=== PATIENT | male | born 1950 | race Caucasian/White ===

== ENCOUNTER 2020-03-06 15:04 | Day surgery (SDC) | payer OTHER, MEDICARE, SELFPAY ==
[2020-03-06 15:16] VITALS: BP 123/61; PULSE 71; RESP 20; TEMP 36.1; O2SAT 96; BMI 23.3
[2020-03-06 15:50] VITALS: BP 123/61; PULSE 63; RESP 18; O2SAT 98
[2020-03-06 15:57] VITALS: BP 124/62; PULSE 61; RESP 18; TEMP 36.8; O2SAT 98
--- NOTE | 2020-03-06 16:05 | P.PCN_ITS ---
- Procedure Date: 03/06/20 Time: 16:05 Anesthesiologist:: Rose Haely APRN Complications:: None Pre-procedure Diagnosis:: Degenerative disc disease lumbar spine lumbar radiculopathy Post-procedure Diagnosis:: Same Indications for Procedure:: Patient is a pleasant 69-year-old white male who presents today for intrathecal pain pump refill and reprogram. He is currently on intrathecal morphine infusion of 2.5 mg/day. He would like to increase this slightly. He is also on gabapentin 400 mg 1 p.o. 6 times a day. He denies any side effects to this medication. [facility] #[id number] reviewed and appropriate. Patient is also on Wellbutrin and doing well with this. Patient is coming to [facility] on his Medtronic pain pump. We will begin the process to have him switched out. Physical Exam General: Alert and oriented x3, no acute distress, pleasant and cooperative, [on room air] Lungs: Resps E/U, Symmetrical chest expansion, Eyes: PERRL Musculoskeletal: Flexion and extension of bar spine somewhat guarded secondary to pain, deep tendon reflexes normal, strength in upper and lower extremities [5/5], [abnormal gait noted] Neurological: speech clear, forest fire officer equal, no gross sensory deficits Procedure Details:: Informed consent was obtained and the risk and benefits of the procedure were explained to the patient. The patient was taken to the procedure room where noninvasive monitoring was placed including noninvasive blood pressure cuff and pulse oximeter. Patient's pump was interrogated. The area over the pump was cleansed with chlorhexidine as a cleansing solution. In sterile fashion the pump was accessed with a 22-gauge needle. Approximately 4.5 mL's were removed of the pump solution and discarded appropriately. The pump was then refilled with 20 mL's of intrathecal morphine 20 mg/mL. The needle was withdrawn and a bandage was placed over the puncture site. The infusion rate was reprogrammed to was increased to 2.7 mg/day. The patient tolerated the procedure well. Plan and Disposition:: We will get the patient started on the process to have his pain pump changed. Patient's been instructed to call the office if he has any issues prior to his next appointment. We will continue his Wellbutrin and gabapentin. Dr. Alcantara has reviewed this note and agrees with this plan of care. This note was dictated using voice recognition software and may contain errors or omissions
[2020-03-06 16:12] VITALS: BP 140/87; PULSE 65; RESP 18; O2SAT 96
== END 2020-03-06 16:12 | disposition home or self-care (01) ==
PROVIDERS: Visit Provider Clinical Nurse Specialist Family Health
DX: M51.16 Intervertebral disc disorders with radiculopathy, lumbar region (principal); I10 Essential (primary) hypertension; F32.9 Major depressive disorder, single episode, unspecified; Z79.899 Other long term (current) drug therapy; Z79.51 Long term (current) use of inhaled steroids
CPT/HCPCS: 62370

== ENCOUNTER → 2020-04-17 10:06 | Outpatient (POV) | payer OTHER, MEDICARE, SELFPAY ==
[2020-04-17 10:17] VITALS: BP 132/77; PULSE 85; RESP 18; TEMP 36.8; O2SAT 98; BMI 25.0
--- NOTE | 2020-04-17 11:03 | HMH.PMPROC ---
- Procedure Date: 04/17/20 Time: 11:03 Anesthesiologist:: Rose Haley APRN Complications:: None Pre-procedure Diagnosis:: Degenerative disc disease lumbar spine lumbar radiculopathy Post-procedure Diagnosis:: Same Indications for Procedure:: Patient is a very pleasant 69-year-old white male who presents today for intrathecal pain pump adjustment. Patient has a Medtronic pump going on for months of battery life. Patient is having increased pain. Patient states that he has been extremely comfortable on his previous dose of medication however now his pain has increased he rates it a 5 out of 10. Patient would like a slight increase today. Denies side effects to his medication. Physical Exam General: Alert and oriented x3, no acute distress, pleasant and cooperative, [on room air] Lungs: Resps E/U, Symmetrical chest expansion, Eyes: PERRL Musculoskeletal: Flexion and extension of lumbar spine somewhat guarded secondary to pain, deep tendon reflexes normal, strength in upper and lower extremities [5/5], [abnormal gait noted] Neurological: speech clear, postal supervisor equal, no gross sensory deficits Procedure Details:: Informed consent was obtained and the risk and benefits of the procedure were explained to the patient. The patient was taken to the procedure room where noninvasive monitoring was placed including noninvasive blood pressure cuff and pulse oximeter. Patient's pump was interrogated and reprogrammed. The infusion rate was increased to 3 mg/day of morphine. The patient tolerated the procedure well. Plan and Disposition:: We will schedule the patient for a intrathecal pain pump replacement. I will follow-up with him after this reassess his symptoms at that time he has been instructed to call the office if he has any issues prior to his next appointment. Dr. Alcantara has reviewed this note and agrees with this plan of care. This note was dictated using voice recognition software and may contain errors or omissions
== END ==
PROVIDERS: Visit Provider Clinical Nurse Specialist Family Health
DX: M51.16 Intervertebral disc disorders with radiculopathy, lumbar region (principal)
CPT/HCPCS: 62368; 99212

== ENCOUNTER → 2020-05-16 11:01 | Outpatient (CLI) | payer OTHER, MEDICARE, SELFPAY ==
[2020-05-16 11:40] LABS: Basophils % 0.6 % (0.1-2.0); Eosinophils # 0.2 K/mm3 (0.0-0.4); Eosinophils % 2.5 % (0.1-12.0); Hematocrit 43.6 % (42.0-52.0); Hemoglobin 14.1 g/dL (14.1-18.0); Lymphocytes # 1.6 K/mm3 (0.7-4.5); Lymphocytes % 25.5 % (10-50); Mean Corpuscular HGB Conc 32.3 g/dL (31.8-35.4); Mean Corpuscular Hemoglobin 28.9 pg (27.0-31.2); Mean Corpuscular Volume 89.4 fl (80-94); Mean Platelet Volume 7.6 fl (7.4-10.4); Monocytes # 0.4 K/mm3 (0.1-1.0); Monocytes % 5.7 % (1.7-9.3); Neutrophils # 4.2 K/mm3 (1.8-7.8); Neutrophils % 65.7 % (37.0-80.0); Platelet Count 347 K/mm3 (142-424); Red Blood Count 4.87 M/mm3 (4.60-6.20); Red Cell Distribution Width 13.4 % (11.5-17.5); White Blood Count 6.4 K/mm3 (4.8-10.8)
[2020-05-16 12:33] LABS: Chloride 98 mmol/L (98-107)
[2020-05-16 12:34] LABS: Potassium 4.4 mmoL/L (3.5-5.1); Sodium 138 mmol/L (136-145)
[2020-05-16 12:37] LABS: Anion Gap 14.4 mEq/L (5-15); Blood Urea Nitrogen 20 mg/dl (9-20); Carbon Dioxide 30 mmol/L (22.0-30.0); Estimated Glomerular Filt Rate 84 ml/min (>60); GFR (African American) 101 ML/MIN (>60); Glucose 112 mg/dl (74-100)
[2020-05-16 14:13] LABS: Coronavirus 19 IgG Antibody Negative (Negative); Coronavirus 19 IgM Antibody Negative (Negative)
[2020-05-16 15:44] LABS: Benzodiazepines Screen,Urine Negative ng/ml (<200)
[2020-05-16 15:45] LABS: Amphetamine/Metha Screen,Urine Negative ng/ml (<1000); Barbiturates Screen,Urine Negative ng/ml (<200)
[2020-05-16 15:51] LABS: Cannabinoid Screen,Urine Negative ng/ml (<50)
[2020-05-16 15:52] LABS: Cocaine Screen,Urine Negative ng/ml (<300); Methadone Screen,Urine Negative ng/ml (<300)
[2020-05-16 15:53] LABS: Opiate Screen,Urine Positive ng/ml (<300); Phencyclidine Screen,Urine Negative ng/ml (<25)
== END ==
PROVIDERS: Visit Provider Anesthesiology
DX: Z01.818 Encounter for other preprocedural examination (principal); M51.36 Other intervertebral disc degeneration, lumbar region
CPT/HCPCS: 36415; 80048; 80305; 85025; 86328

== ENCOUNTER 2020-05-17 07:00 | Day surgery (SDC) | payer OTHER, MEDICARE, SELFPAY ==
[2020-05-15 13:44] VITALS: BMI 25.0
[2020-05-17] VITALS (11 sets, daily range): BP systolic 72–153; BP diastolic 54–90; PULSE 57–89; RESP 16–18; TEMP 36.2–36.6; O2SAT 93–98
--- NOTE | 2020-05-17 08:07 | P.CONS_ITS ---
Assessment and Plan - Assessment and plan all Dx Assessment and Plan for all problems:: Cjtsvqaohx-paw-gy-life, pain pump generator Plan-removal and replacement of pain pump generator today HPI - Data of Consult Patient: new to practice Requesting Physician: Clark Alcantara MD Primary Care Provider: No PCP - Consult Narrative Reason for consult: End of life, pain pump generator History of present illness: Mr. Nix is a 69 year old male who had placement of a pain stimulator system 5- 1/2 years ago for management of degenerative disc disease. Pump is ending year of life status and he comes in for changing of his pain pump generator CC: Clark Alcantara MD [facility] History Medical History: Reports:: Hyperlipidemia, Hypertension Denies:: Cancer, Diabetes Mellitus Type 1, Diabetes Mellitus Type 2, Internal Pacemaker, MRSA, Seizures *Have you ever received a pneumonia vaccine?: No *Have you received a flu vaccine this season?: Yes Other Medical History: Reports: Arthritis Comment:: Illnesses-hypertension, hyperlipidemia, depression, chronic back pain Other Surgeries: Yes: Other (pain pump implant). No: Pacemaker Amputation: No Fractures: Yes Comment: Operations-pain pump implant 5-1/2 years ago, right foot surgery, partial amputation right thumb - *Social History Last grade of school completed: High school graduate Smoking Status: Never smoker Alcohol Intake: never *Occupational Status:: retired Housing: house Household Members: spouse *Travel in the last 8 weeks: None Family Hx:: Unable to obtain Review of Systems - Review of Systems Review of systems:: pertinent systems reviewed and negative unless documented below Meds Home Medications Medication Instructions Recorded Confirmed Type Gabapentin [Gabapentin 400mg Cap] 400 mg PO BID 11/01/19 05/15/20 History Simvastatin 20 mg PO DAILY 11/01/19 05/15/20 History lisinopriL [Lisinopril 10mg Tab] 10 mg PO DAILY 11/01/19 05/15/20 History Morphine Sulfate 2.5 mg IT CONT 03/06/20 05/15/20 History buPROPion HCL [Wellbutrin SR 150mg 150 mg PO BID 05/15/20 05/15/20 History Tablet] Allergies Allergy/AdvReac Type Severity Reaction Status Date / Time No Known Allergies Allergy Verified 05/15/20 13:49 Objective no acute distress Comments: Healthy-appearing white male in no distress - *Routine Respiratory Exam Comments: Chest clear - *Routine Cardiovascular Exam Present: RRR - *Routine Abdominal Exam Present: soft
--- NOTE | 2020-05-17 09:16 | HMH.ANESCL ---
[facility] Anesthesia Checklist - Structural Data Admitted From: Home Planned Operative Procedure/s: pain pump insertion Consent for Planned Operative Procedure(s) Verified: Yes - Additional verifications Anesthesia Reactions: No Hx Blood Transfusions: No Blood Transfusion Reaction: No - Airway Assessment C-Spine Mobility Assessed: Yes TMJ Mobility Assessed: Yes Dentition: Edentulous - Neurological Assessment Level of Consciousness: Awake, Alert, Appropriate - Anesthesia Plan Anesthesia Risk discussed: Yes Anesthesia Plan: Verified ASA Class: II Anesthesia Type: MAC [facility] History I have reviewed the patient's past medical history: Yes Medical History: Reports:: Hyperlipidemia, Hypertension Denies:: Cancer, Diabetes Mellitus Type 1, Diabetes Mellitus Type 2, Internal Pacemaker, MRSA, Seizures *Have you ever received a pneumonia vaccine?: No *Have you received a flu vaccine this season?: Yes Other Medical History: Reports: Arthritis. Denies: Blood Transfusion Reaction Anesthesia experience/problems:: none Other Surgeries: Yes: Other (pain pump implant). No: Pacemaker Amputation: No Fractures: Yes - *Social History Last grade of school completed: High school graduate Smoking Status: Never smoker Alcohol Intake: never Substance Use Type: denies use *Occupational Status:: retired Housing: house Household Members: spouse *Travel in the last 8 weeks: None Family Hx:: Unable to obtain
[2020-05-17 11:12] LABS: POC Glucose,Bedside 126 (70-110)
--- NOTE | 2020-05-17 12:36 | P.OP_ITS ---
Date of procedure: 05/17/20 Pre-op Diagnosis:: Degenerative disc disease of lumbar spine with lumbar radiculopathy symptoms with end-of-life intrathecal pain pump system Post-op Diagnosis:: Same Procedure performed:: Replacement intrathecal catheter with tunneling for replacement of intrathecal pain pump system Surgeon:: Clark Alcantara MD ACTUARIAL TECHNICIAN:: Mehul Arteaga Anesthesia: GETA Estimated blood loss (mL): 5 Clinical Note:: Patient is a pleasant 69-year-old white male who has an intrathecal Medtronic in place with intrathecal morphine 20 mg/mL running at 3.0 mg/day. He was doing well with his pump up until recently when he had to have several increases in his infusion as his pump was nearly end-of-life. We are replacing his intrathecal catheter and pain pump today as it is nearing end-of-life. His catheter is almost 14 years old so we will also change out his catheter as well. Operative findings:: None Operative note:: Informed consent was obtained and the risk and benefits of the procedure were explained to the patient. The patient was taken to the operating room placed in a right lateral decubitus position. Patient was prepped and draped in sterile fashion. C-arm fluoroscopy was used to view the lumbar spine. The existing Medtronic pain pump was explanted by Dr. Woods. The catheter was tied off in the pocket. I made an incision adjacent to the L4-5 and L5-S1 interspace. I dissected down to the lumbar paraspinous fascia. A 14-gauge spinal needle was inserted and advanced into the L4-5 interspace until clear CSF was obtained. After this intrathecal catheter was inserted and advanced very easily to the T12 vertebral body. The stylette of the catheter and the needle were withdrawn. The catheter is secured to the fascia with 2 anchoring devices and 2-0 Prolene. I tunneled the catheter from the back to the pump pocket that was previously created by Dr. Flores. I attached the catheter to the pump. The pump was secured to the fascia with 2-0 Prolene. We were able to freely withdraw clear CSF through the side-port. Both incisions were then closed with 2-0 Vicryl followed by 4-0 nylon. A wound VAC was placed over both incisions. The patient was placed in an abdominal binder and taken recovery in stable condition. Patient tolerated the procedure well with no complications. Patient was programmed by the [facility] service center representative. Pump was decreased 20% to 2.4 mg/day of intrathecal morphine. The pump was then refilled with 20 mL of intrathecal morphine 20 mg per ml. prior to implantation. Patient was discharged home neurologically intact with good relief of pain symptoms. Plan and disposition: We will follow-up with this patient in 1 week for wound check. We will follow-up in 2 weeks for suture removal. If the patient has any problems or questions he is to call us back in the pain clinic. Condition: stable Disposition: PACU Complications:: None
--- NOTE | 2020-05-17 12:46 | HMH.OPNOTE ---
Date of procedure: 05/17/20 Pre-op Diagnosis:: End of life, pain pump generator Post-op Diagnosis:: Same Procedure performed:: Removal and replacement of pain pump generator Surgeon:: Tadeo Woods MD TIMING MACHINE OPERATOR:: Rolf Grant, Teddy Love, Taj Albrecht, Mehul Arteaga, Other Anesthesia: MAC Estimated blood loss (mL): 5 Operative findings:: Not applicable Operative note:: Once adequate IV sedation was obtained the patient was placed on his right side and his left abdomen and back were prepped and draped in sterile fashion. Once adequate local anesthesia was obtained was 1% Xylocaine with epinephrine a incision was made over the left abdominal located generator and carried down through skin and subcutaneous tissues. Generator and surrounding Dacron pouch were removed. The catheter was ligated with a 0 silk tie. At this point appears spinal incision was made by Dr. Polk under fluoroscopic guidance placed an intrathecal catheter into the intrathecal space to the area desired by Dr. Bliss. The catheter was fixed to the paraspinal fascia with fixation devices and 2-0 Prolene suture. Utilizing the tunneling device the catheter was passed from the paraspinal incision to the left lower quadrant incision. Generator and catheter connected. Generator placed in the pocket and fixed to the underlying fascia with 2-0 Prolene suture. CSF was aspirated from the generator noting patency of the system. Both pockets irrigated with antibiotic solution. Subcutaneous tissues closed with 2-0 Vicryl. Skin closed arm stitches of 4-0 nylon. Wound VAC dressings and a binder applied to the wound. The patient taught procedure well was taken recovery in stable condition. Upon recovery patient will be discharged home will follow-up 1 week for removal of wound VAC dressings in 2 weeks for removal of the stitches. Antibiotics x1 week per protocol. The patient tolerated the procedure well Condition: stable Disposition: PACU Complications:: None
== END 2020-05-17 15:52 | disposition home or self-care (01) ==
LOC: OR 07:03
PROVIDERS: Visit Provider Anesthesiology
PROC: (CPT 62350; principal; 2020-05-17 09:00)
DX: Z45.1 Encounter for adjustment and management of infusion pump (principal); M51.16 Intervertebral disc disorders with radiculopathy, lumbar region; I10 Essential (primary) hypertension; E78.5 Hyperlipidemia, unspecified; M19.90 Unspecified osteoarthritis, unspecified site; F32.9 Major depressive disorder, single episode, unspecified; Z79.899 Other long term (current) drug therapy
CPT/HCPCS: 62350; 62362; 82962; 96374; C1755; C1772; J3370

== ENCOUNTER 2020-05-18 18:26 | Observation (INO) | payer OTHER, SELFPAY ==
[2020-05-18] VITALS (13 sets, daily range): BP systolic 139–182; BP diastolic 67–123; PULSE 110–124; RESP 18–26; TEMP 36.6–37.8; O2SAT 93–98; BMI 27.3
[2020-05-18 18:46] LABS: Basophils % 0.1 % (0.1-2.0); Eosinophils % 0.1 % (0.1-12.0); Hematocrit 42.9 % (42.0-52.0); Hemoglobin 13.9 g/dL (14.1-18.0); Lymphocytes % 8.1 % (10-50); Mean Corpuscular HGB Conc 32.3 g/dL (31.8-35.4); Mean Corpuscular Hemoglobin 28.1 pg (27.0-31.2); Mean Platelet Volume 7.5 fl (7.4-10.4); Monocytes # 0.4 K/mm3 (0.1-1.0); Monocytes % 3.6 % (1.7-9.3); Neutrophils # 10.6 K/mm3 (1.8-7.8); Platelet Count 411 K/mm3 (142-424); Red Blood Count 4.94 M/mm3 (4.60-6.20); Red Cell Distribution Width 13.3 % (11.5-17.5)
[2020-05-18 18:48] LABS: Chloride 104 mmol/L (98-107); Potassium 3.6 mmoL/L (3.5-5.1); Sodium 142 mmol/L (136-145)
[2020-05-18 18:49] LABS: MANUAL DIFFERENTIAL MANUAL DIFFERENTIAL (MANUAL DIFF)
[2020-05-18 18:50] LABS: Alanine Aminotransferase 27 U/L (12-78); Aspartate Amino Transferase 28 U/L (17-59); Bilirubin,Total 0.6 mg/dl (0.2-1.3); Blood Urea Nitrogen 19 mg/dl (9-20); Creatinine Clearance Estimated 81 mL/min (50-200); Estimated Glomerular Filt Rate 74 ml/min (>60); GFR (African American) 90 ML/MIN (>60)
[2020-05-18 18:51] LABS: Albumin/Globulin Ratio 1.5 (1.1-1.8); Alkaline Phosphatase 62 U/L (38-126); Anion Gap 19.6 mEq/L (5-15); Calcium 10.3 mg/dl (8.4-10.2); Carbon Dioxide 22 mmol/L (22.0-30.0); Globulin 3.3 g/dL (1.3-3.2); Glucose 220 mg/dl (74-100); Lipase 68 U/L (23-300); Total Protein,Serum 8.3 g/dl (6.3-8.2)
[2020-05-18 18:57] LABS: Lymphocytes % 4 % (10-50); Monocytes % 5 % (2-9); Neutrophils % 91 % (42-76); Platelet Estimate Normal; RBC Morphology Normal; Total Cells Counted 100
[2020-05-18 18:58] LABS: Hypersegmented Neutrophils 1+
--- NOTE | 2020-05-18 19:01 | HMH.EDANX ---
ED Disposition Condition on Discharge: Serious - Critical Care Critical Care Time: No <Wilmer Pappas - Last Filed: 05/18/20 20:33> - Critical Care Critical Care Time: Yes Total Critical Care Time: 40 Vital system(s) involved:: Central Nervous System My critical care processes included: Assessment & monitoring of V/S, Initial and Re-exams, Data Review/Interpretation, Coordinating Care, Medication Orders and management, Documentation <Wilmer Woods - Last Filed: 05/18/20 23:52> Clinical Impression: Acute anxiety, Agitation requiring sedation protocol Disposition: Admitted as Observation Referrals: Provider,Referral, MD [Primary Care Provider] - Attestation: On 05/18/20, the high probability of a clinically significant, sudden or life threatening deterioration of the following system(s) required my full and direct attention, intervention and personal management. The time I documented below is in addition to time spent performing reported procedures but includes the following listed in this critical care notation. Medical Decision Making - Medical Records Medical records reviewed: Yes: I reviewed the patient's medical records. - Walter Inquiry Pt receiving controlled substance: Yes Walter was queried for this patient: No Reason not queried -: Emergent pt cond-no time Risks and benefits of using a controlled substance: were discussed with pt by me - Lab Data Result diagrams: 05/18/20 18:40 05/18/20 18:40 - Restraint Evaluation Behavior Requiring Restraints: Violent Behavior Type of restraints in use: Foam/Soft Limb Alternatives Attempted to Avoid Restraints: Limit Setting/Control Indications for removing restraints: No longer combative Patient's current condition/response: Tolerating Well Medical Behavior/Plan: Continue current protocol <Wilmer Pappas - Last Filed: 05/18/20 20:33> - Lab Data Lab results reviewed: Yes: I reviewed the patient's lab results. Result diagrams: 05/18/20 18:40 05/18/20 18:40 - Radiology Data #1 Image(s): Chest Image Reviewed: Yes I reviewed the patient's radiology image - CT Data CT Scan: Head Time Received: 23:36 ([facility] fax) ED CT Reviewed: Yes: I have viewed the radiologist's interpretation - Physician Consults Physician Consulted: Bux Time: 21:05 Reason -: Pt condition, Other (Pain management) Comment/Response: He states that the patient's pain pump was changed from a Medtronics to a [employer] pump. His old pump delivered a continuous infusion of medication, his new pump delivers small boluses. He has seen people get restless legs and leg pain after this sort of change. He says he also knows that the patient has an intolerance to Dilaudid. He recommends continue doses of morphine, he prefers Valium to Ativan, and recommends a dose of Requip. He recommends admission and he will see the patient in the morning to adjust his pain pump. Additional Consult: Maricruz Time: 23:30 Reason -: Pt condition, Other (Pain management) Comment/Response: Discussed findings since last call. Rectal temperature is mildly elevated. He does not feel this is international representative of infection related to his procedure. He says it is too early in the course. The patient denies headache and has no nuchal rigidity. He does not suspect meningitis. Discussed analysis of spinal fluid. He does not feel this is necessary at this time, but if necessary he will have LP performed by radiology under fluoroscopy due to his intrathecal pain pump. This is preferable to getting fluid from his intrathecal catheter. The patient is on Bactrim postoperatively, he does not feel other antibiotics are needed. Additional Consult: Marlon Time: 23:45 Reason -: Admission Comment/Response: Agrees to admit the patient to the hospital. We discussed the patient's clinical information, including history, exam, laboratory and radiology results and ED course. Per hospital procedure, I will write temporary bridge inpatie
--- NOTE | 2020-05-18 19:45 | CT_ITS ---
PROCEDURE: CT HEAD/BRAIN WO CON CLINICAL INDICATION: ams Altered mental status, altered level of consciousness, confusion, disorientation COMPARISON: No exams were available for comparison TECHNIQUE: Axial images obtained. All CT scans at the facility use one or more dose reduction, viz: automated exposure control, ma/kV adjustment per patient size (including targeted exams where dose is matched to indication, i.e. head), or iterative reconstruction technique. FINDINGS: No midline shift, mass effect, intracranial hemorrhage, hydrocephalus, or extra-axial fluid collection is evident. There is a mild degree of cortical atrophy. The ventricles are somewhat prominent slightly out of proportion to the degree of atrophy. The calvarium has an unremarkable appearance. Partial empty sella is present as a normal variant. No mastoid effusion. No sinus air-fluid level. IMPRESSION: 1. No acute intracranial findings. 2. Mild prominence of the lateral ventricles possibly related to ex vacuo dilatation. Early normal pressure hydrocephalus is also consideration. Please correlate with clinical parameters. Follow-up may confirm stability. Correlation with old films may also be helpful. There are none available at this institution. Dictated by: Dav Espinoza MD 05/19/2020 05:36 Dav Espinoza MD in [facility] 05/19/2020 05:36
--- NOTE | 2020-05-18 20:10 | PC.NURSE ---
pricehas some AMS and may require restraints, michoacano called and was advised. michoacano advised that she will find someone to come sit one on one
[2020-05-18 20:11] LABS: ABG Base Excess -4.2 mmol/L (-2.4-2.3); ABG HCO3 19.4 mmhg (22.0-26.0); ABG Oxygen Saturation 96 % (90-100); ABG PCO2 27.3 mmhg (35.0-45.0); ABG PH 7.47 mmol/L (7.35-7.45); ABG PO2 78.7 mmhg (80-100); ABG TCO2 20.3 mmhg (23-27); Oxygen room air %
[2020-05-18 20:12] LABS: Allen's Test Patient Unable; Source Left Radial
[2020-05-18 20:14] LABS: Ethyl Alcohol < 10 mg/dl (0-10)
--- NOTE | 2020-05-18 20:29 | PC.NURSE ---
Head CT ordered on pt, pt is not able to safely lay on a table to CT at this time, pt on 1:1 sitter for safety
--- NOTE | 2020-05-18 20:31 | XR_ITS ---
PROCEDURE: XR CHEST PORTABLE CLINICAL HISTORY: AMS Altered mental status COMPARISON: No exams were available for comparison FINDINGS: Normal heart size. There is increased density overlying the lower tracheal region at the T3 level with the con vacs upper margin. This may be due to overlying artifact. Cannot exclude a foreign body within the trachea. Please correlate with clinical parameters. There are low lung volumes with vascular crowding in the right infrahilar region. No acute bony abnormalities. IMPRESSION: Increased density overlying the mid to lower trachea which may be due to overlying artifact versus foreign body. Repeat upright PA and lateral or chest CT may provide further evaluation. Dictated by: Dav Espinoza MD 05/19/2020 05:07 Dav Espinoza MD in [facility] 05/19/2020 05:07
--- NOTE | 2020-05-18 21:03 | ECG_ITS ---
APPROVED REPORT Exam: Resting ECG HR:120 bpm ECG Measurements Heart Rate 120 AXES [place] 186 P 108 QRSd 92 QRS -10 QT 300 T 208 QTc 424 Conclusion Sinus tachycardia with fusion complexes Incomplete right bundle branch block Inferior infarct, age undetermined Cannot rule out Anteroseptal infarct, age undetermined T wave abnormality, consider lateral ischemia Abnormal ECG Electronically signed by : Teddy Stark, 05/19/2020 14:33:11
--- NOTE | 2020-05-18 21:04 | PC.NURSE ---
on phone with dr beyer
--- NOTE | 2020-05-18 21:12 | PC.NURSE ---
called charge nurse upstairs for requip dose
--- NOTE | 2020-05-18 21:16 | PC.NURSE ---
called [facility] and informed them of patients wishes of staying at this facility for admission. awaiting fax of paperwork to be filled out by patients .
[2020-05-18 21:21] LABS: Troponin I < 0.01 ng/ml (0.00-0.034)
--- NOTE | 2020-05-18 23:02 | PC.NURSE ---
returned from ct
[2020-05-18 23:22] LABS: Microscopic, Urine URINE MICROSCOPIC (MICROSCOPIC)
[2020-05-18 23:23] LABS: Appearance,Urine CLEAR (Clear); Bilirubin,Urine Negative (Negative); Blood, Urine 3+ (Negative); Color,Urine YELLOW (Yellow); Glucose,Urine (UA) 2+ (Negative); Ketones,Urine 1+ (Negative); Leukocyte Esterase,Urine Negative (Negative); Nitrate,Urine Negative (Negative); Protein,Urine Negative (Negative); Urobilinogen,Urine 0.2 EU/dl (0.2)
[2020-05-18 23:28] LABS: WBC,Urine Occasional #/hpf (0-3)
[2020-05-18 23:29] LABS: Bacteria,Urine Trace /lpf; RBC,Urine 20-50 #/hpf (0-3)
[2020-05-18 23:34] LABS: Benzodiazepines Screen,Urine Positive ng/ml (<200)
[2020-05-18 23:35] LABS: Amphetamine/Metha Screen,Urine Negative ng/ml (<1000); Barbiturates Screen,Urine Negative ng/ml (<200)
[2020-05-18 23:36] LABS: Cannabinoid Screen,Urine Negative ng/ml (<50); Methadone Screen,Urine Negative ng/ml (<300)
[2020-05-18 23:37] LABS: Cocaine Screen,Urine Negative ng/ml (<300)
[2020-05-18 23:38] LABS: Opiate Screen,Urine Positive ng/ml (<300); Phencyclidine Screen,Urine Negative ng/ml (<25)
[2020-05-18 23:49] LABS: Coronavirus 19 IgG Antibody Negative (Negative); Coronavirus 19 IgM Antibody Negative (Negative)
[2020-05-19] VITALS (9 sets, daily range): BP systolic 140–185; BP diastolic 60–87; PULSE 80–116; RESP 16–20; TEMP 36.6–37.9; O2SAT 93–98; BMI 20.9
--- NOTE | 2020-05-19 00:55 | PC.NURSE ---
patient up to floor via stretcher.
--- NOTE | 2020-05-19 01:59 | PC.NURSE ---
Unable to obtain information from pt due to AMS upon arrival to unit. Pt is only A&O to self. States he is in [place] and the current year is 1997. Pt noted very lethargic and sporadic with his body movements. Pt continues to thrash his limbs at times, but for most part lethargic when asked questions and unable to appropriately answer without falling asleep. Med rec unable to be completed at time of admission. This RN will attempt to call pt's in am and have her bring pt's medications from home in with her this am so med rec can be completed.
--- NOTE | 2020-05-19 03:38 | PC.NURSE ---
Pt has rested well with eyes closed with intermittent periods of awakening and thrashing of arms, but easily calms down on his own. No longer needing one on one supervision at this time. Bed alarm is on and functioning with staff close by. Bilateral breath sounds noted clear t/o upon auscultation. Tolerates RA well with no c/o SOA. Abdomen noted soft and non-tender upon palpation. Wound vac noted to left lower abdomen and lower lower back. VSS. Remains safe. Call light within reach. Will continue to monitor.
--- NOTE | 2020-05-19 05:45 | PC.NURSE ---
Attempted to call per number on file this am. No answer and no voicemail set up. Will attempt again at a later time.
--- NOTE | 2020-05-19 07:31 | P.CONPHA_ITS ---
[facility] [place] Pharmacy VTE Monitoring - Patient Demographics Admission date: 05/18/20 Report Date: 05/19/20 Time: 07:31 Allergies/Adverse Reactions: Patient Allergies No Known Allergies Allergy (Verified 05/15/20 13:49) Height: 1.73 m Weight: 62.851 kg Patient Problems: Current Active Problems Acute anxiety (Acute) Agitation requiring sedation protocol (Acute) - VTE Risk Labs: VTE Related Lab Results Hgb 13.9 g/dL (14.1-18.0) L 05/18/20 18:40 Hct 42.9 % (42.0-52.0) 05/18/20 18:40 Plt Count 411 K/mm3 (142-424) 05/18/20 18:40 BUN 19 mg/dl (9-20) 05/18/20 18:40 Creatinine 1.00 mg/dl (0.66-1.25) 05/18/20 18:40 Estimated Creat Clear 81 mL/min (50-200) 05/18/20 18:40 - Prophylaxis VTE Prophylaxis Ordered?: Yes Types of VTE Prophylaxis: TEDS Knee High Location of Applied Device: Bilateral Lower Extremeties
--- NOTE | 2020-05-19 07:56 | HMH.PHAINT ---
home medication list confirmed with [facility]
--- NOTE | 2020-05-19 08:30 | HMH.HP ---
*Admission Date: 05/18/20 <Maggi Peck 05/19/20 08:31> *Chief complaint: Anxiety and Agitation <Maggi Peck 05/19/20 08:31> *History of present illness: Mr. Nix is a 69yo male with history of HTN and HLP who presented to the [facility] ED yesterday with complaints of severe anxiousness and leg pain following surgery for intrathecal pain pump revision the day prior. He reported a history of withdrawal in a similar situation when he had his pain pump changed and experienced abnormalities in his dosage. His reported that he had not experienced any confusion, however, he had been very restless and unable to get comfortable since waking up that morning. He had no headache or GI upset. After experiencing symptoms for most of the day, he contacted Dr. Alcantara's office and was advised to come to the ED for evaluation. Upon arrival, he was very restless, pacing in his room and tremulous. His workup was unremarkable, however, despite remaining alert and oriented, his agitation was severe enough that even after restraints were applied in for safety he continued to thrash around in the bed. Dr. Alcantara was contacted for recommendations and decision was made for admission for monitoring until he could be evaluated in the morning. This morning, he is resting quietly in bed. He arouses easily to voice and reports his withdrawal symptoms are much improved from last night. He denies any nausea or vomiting although he has little appetite. He continues with minimal leg discomfort. He is feeling better and inquiring when he will be discharged today. <Maggi Peck 05/19/20 09:00> [facility] History I have reviewed the patient's past medical history: Yes <Maggi Peck 05/19/20 09:00> Medical History: Reports:: Hyperlipidemia, Hypertension Denies:: Cancer, Diabetes Mellitus Type 1, Diabetes Mellitus Type 2, Internal Pacemaker, MRSA, Seizures <Maggi Peck 05/19/20 08:31> *Have you ever received a pneumonia vaccine?: No (unable to respond) <Maggi Peck 05/19/20 08:31> *Have you received a flu vaccine this season?: No (unable to respond) <Maggi Peck 05/19/20 08:31> Other Medical History: Reports: Arthritis. Denies: Blood Transfusion Reaction <Maggi Peck 05/19/20 08:31> Other Surgeries: Yes: Other (pain pump implant). No: Pacemaker <Maggi Peck 05/19/20 08:31> Amputation: No <Maggi Peck 05/19/20 08:31> Fractures: Yes <Maggi Peck 05/19/20 08:31> - *Social History Smoking Status: Never smoker <Maggi Peck 05/19/20 08:31> Alcohol Intake: never <Maggi Peck 05/19/20 08:31> Substance Use Type: denies use <Maggi Peck 05/19/20 08:31> *Occupational Status:: retired <Maggi Peck 05/19/20 08:31> Housing: house <Maggi Peck 05/19/20 08:31> Household Members: spouse <Maggi Peck 05/19/20 08:31> *Travel in the last 8 weeks: None <Maggi Peck 05/19/20 08:31> Family Hx:: Unable to obtain <Maggi Peck 05/19/20 08:31> Review of Systems - Constitutional Reports anorexia, Reports body ache(s), Reports weakness, Denies fever(s), Denies headache(s) <Maggi Peck 05/19/20 09:00> - Eyes Denies blurry vision, Denies change in vision <Maggi Peck 05/19/20 09:00> - ENT Denies headache(s), Denies nasal discharge, Denies post nasal drip, Denies sinus pain, Denies sinus pressure, Denies sore throat, Denies dizziness <Maggi Peck 05/19/20 09:00> - *Cardiovascular Reports leg pain with activity, Denies chest pain, Denies chest pain at rest, Denies chest pain with activity, Denies shortness of breath, Denies shortness of breath with activity, Denies leg swelling, Denies lightheadedness, Denies rapid, pounding, or irregular heartbeat <Maggi Peck 05/19/20 09:00> - *Respiratory Denies chest congestion, Denies cough, Denies shortness of breath <Maggi Peck - 05/19/20 09:00> - *Gastrointestinal Denies abdominal pain, Denies change in bowel habits, Denies loose stools, Denies nausea, Denies vomiting <Maggi Peck - 05/19/20 09:00> - *Genitourinary Den
--- NOTE | 2020-05-19 17:06 | HMH.PMCON ---
Assessment and Plan (1) AMS (altered mental status) Status: Acute Category: Medical Code(s): R41.82 - Altered mental status, unspecified (2) Abnormal movement of lower extremity Status: Acute Category: Medical Code(s): G25.9 - Extrapyramidal and movement disorder, unspecified (3) Acute anxiety Status: Acute Category: Medical Code(s): F41.9 - Anxiety disorder, unspecified - Assessment and plan all Dx Assessment and Plan for all problems:: Patient is doing much better this evening. He is alert and oriented x3 in no acute distress. Pain is much better he is not restless. His leg pain is much better his appetite is coming back. His incisions look fine he does have a wound VAC on. His intrathecal morphine infusion will be continued at the current dose of 2.4 mg/day. We will follow-up with him on . He can be discharged home at the discretion of his attending physician. HPI - Data of Consult Patient: known to practice within the last 3 years Consult date: 05/19/20 Requesting Physician: Christian Mason MD Primary Care Provider: Referral Provider, - Consult Narrative Reason for consult: Admitted with withdrawal symptoms and delirium History of present illness: Mr. Nix is a 69 year old male who had a change out of his intrathecal pain pump on Friday. He did well for 24 hours yesterday he started having increasing pain down his legs and was restless. He came into the emergency room with restless legs and was very agitated he did receive multiple medications to help with his pain symptoms and to sedate him. He was having what was thought to be some withdrawal type symptoms. I did see him today he is much better pain is under control and he is alert and oriented x3. CC: Christian Mason MD [facility] History I have reviewed the patient's past medical history: Yes Medical History: Reports:: Hyperlipidemia, Hypertension Denies:: Cancer, Diabetes Mellitus Type 1, Diabetes Mellitus Type 2, Internal Pacemaker, MRSA, Seizures *Have you ever received a pneumonia vaccine?: No (unable to respond) *Have you received a flu vaccine this season?: No (unable to respond) Other Medical History: Reports: Arthritis. Denies: Blood Transfusion Reaction Other Surgeries: Yes: Other (pain pump implant). No: Pacemaker Amputation: No Fractures: Yes - *Social History Smoking Status: Never smoker Alcohol Intake: never Substance Use Type: denies use *Occupational Status:: retired Housing: house Household Members: spouse *Travel in the last 8 weeks: None Family Hx:: Unable to obtain Review of Systems - *Neurologic Reports behavioral changes, Reports radiating pain, Reports restless legs, Reports tremor(s), Reports weakness, Reports other (anxiety), Denies confusion, Denies unsteadiness, Denies dizziness, Denies headache(s), Denies numbness, Denies dizziness Meds Home Medications Medication Instructions Recorded Confirmed Type Gabapentin [Gabapentin 400mg Cap] 400 mg PO BID 11/01/19 05/18/20 History Simvastatin 20 mg PO DAILY 11/01/19 05/18/20 History lisinopriL [Lisinopril 10mg Tab] 10 mg PO DAILY 11/01/19 05/18/20 History Morphine Sulfate 2.5 mg IT CONT 03/06/20 05/18/20 History buPROPion HCL [Wellbutrin SR 150mg 150 mg PO BID 05/15/20 05/18/20 History Tablet] Hydrocodone/Acetaminophen [Benton 1 tab PO Q4-6H PRN #25 tab 05/17/20 05/18/20 Rx 7.5-325 Tablet] Sulfamethoxazole/Trimethoprim 1 each PO BID 05/18/20 05/18/20 History [Bactrim DS tablet] Alendronate Sodium 70 mg PO WEEKLY 05/19/20 05/19/20 History Allergies Allergy/AdvReac Type Severity Reaction Status Date / Time No Known Allergies Allergy Verified 05/15/20 13:49 Objective Vital signs: Temp Pulse Resp BP Pulse Ox 98.1 F 80 18 159/60 H 98 05/19/20 15:36 05/19/20 15:36 05/19/20 15:36 05/19/20 15:36 05/19/20 15:36
--- NOTE | 2020-05-20 07:28 | HMH.DCSUM ---
General - General Admission date:: 05/19/20 Discharge date: 05/19/20 HPI HPI: Mr. Nix is a 69yo male with history of HTN and HLP who presented to the [facility] ED yesterday with complaints of severe anxiousness and leg pain following surgery for intrathecal pain pump revision the day prior. He reported a history of withdrawal in a similar situation when he had his pain pump changed and experienced abnormalities in his dosage. His reported that he had not experienced any confusion. However, he had been very restless and unable to get comfortable since awakening that morning. He had no headache or GI upset. After experiencing symptoms for most of the day, he contacted Dr. Alcantara's office and was advised to come to the ED for evaluation. Upon arrival, he was very restless, pacing in his room and tremulous. His workup was unremarkable, however, despite remaining alert and oriented. His agitation was severe enough that even after restraints were applied for safety he continued to thrash around in the bed. Dr. Alcantara was contacted for recommendations and decision was made for admission for monitoring until he could be evaluated in the morning. The following morning, he was resting quietly in bed. He aroused easily to voice and reported his withdrawal symptoms were much improved from previous night. He denied any nausea or vomiting although he had little appetite. He continued with minimal leg discomfort. He was feeling better and inquired when he would be discharged. Hospital Course Hospital Course: Patient appeared to have had/reaction a side effect from intrathecal pain pump change. He received Valium IV and morphine for pain, He was much better the following morning. Dr. Alcantara, pain management MD, was consulted who saw him in the evening at which time the patient continued to feel better. He was alert and oriented x3. He was not restless. Leg pain was much better. His appetite was returning. He was to continue on with intrathecal morphine infusion at 2.4 mg/day with follow-up with Dr. Alcantara. The patient was discharged home in the evening of 05/19/2020 in stable and satisfactory condition. He was to follow-up with Dr. Alcantara on 05/25/2020. Objective Vital signs: Temp Pulse Resp BP Pulse Ox 98.1 F 80 18 159/60 H 98 05/19/20 15:36 05/19/20 15:36 05/19/20 15:36 05/19/20 15:36 05/19/20 15:36 Narrative: Exam Vital signs and Labs for Last 24 Hours: Temp Pulse Resp BP Pulse Ox 98.5 F 83 18 185/87 H 96 05/19/20 08:00 05/19/20 08:00 05/19/20 08:00 05/19/20 08:00 05/19/20 08:00 Laboratory Results - last 24 hr 05/18/20 18:40: WBC 12.0 H D, RBC 4.94, Hgb 13.9 L, Hct 42.9, MCV 87.0, MCH 28.1, MCHC 32.3, RDW 13.3, Plt Count 411, MPV 7.5, Neut % (Auto) 88.0 H, Lymph % (Auto) 8.1 L, Fergus % (Auto) 3.6, Eos % (Auto) 0.1, Baso % (Auto) 0.1, Neut # (Auto) 10.6 H, Lymph # (Auto) 1.0, Fergus # (Auto) 0.4, Eos # (Auto) 0.0, Baso # (Auto) 0.0, Total Counted 100, Neutrophils % (Manual) 91 H, Lymphocytes % (Manual) 4 L, Monocytes % (Manual) 5, Hypersegmented Neuts 1+, Platelet Estimate Normal, RBC Morphology Normal 05/18/20 18:40: Sodium 142, Potassium 3.6, Chloride 104, Carbon Dioxide 22 D, Anion Gap 19.6 H, BUN 19, Creatinine 1.00, Estimated Creat Clear 81, Estimated GFR 74, Est GFR ( Amer) 90, Glucose 220 H, Calcium 10.3 H, Total Bilirubin 0.6, AST 28, ALT 27, Alkaline Phosphatase 62, Total Protein 8.3 H, Albumin 5.0, Globulin 3.3 H, Albumin/Globulin Ratio 1.5, Lipase 68 05/18/20 18:40: Plasma/Serum Alcohol < 10 05/18/20 18:40: Troponin I < 0.01 05/18/20 18:40: SARS-CoV-2 IgG Ab (Rapid) Negative, SARS-CoV-2 IgM Ab (Rapid) Negative 05/18/20 19:58: Specimen Source Left radial, O2 % room air, ABG pH 7.47 H, ABG pCO2 27.3 L, ABG pO2 78.7 L, ABG HCO3 19.4 L, ABG Total CO2 20.3 L, ABG O2 Saturation 96, ABG Base Excess -4.2 L, Dav Test Patient unable 05/18/20 23:05: Urine Opiates Screen Positive H, Urine Methadone Screen Neg
--- NOTE | 2020-05-22 11:03 | CARE MANAGER ---
On 05/19 I attempted to contact Miri Browning at patient's [facility], ext. [phone], and had to leave message. Patient stated the stay should be related to his claim. Attempted to call again today 05/22/20 and left another message.
== END 2020-05-19 17:35 | disposition home or self-care (01) ==
LOC: ER 23:52 → 2ND 05-19 01:15
PROVIDERS: Emergency Medicine; Admitting Provider Family Medicine; Emergency Provider Emergency Medicine; Visit Provider Family Medicine
DX: F41.9 Anxiety disorder, unspecified (principal); R45.1 Restlessness and agitation; G25.9 Extrapyramidal and movement disorder, unspecified; I10 Essential (primary) hypertension; E78.5 Hyperlipidemia, unspecified; M51.16 Intervertebral disc disorders with radiculopathy, lumbar region; Z79.891 Long term (current) use of opiate analgesic; Z79.899 Other long term (current) drug therapy; Z97.8 Presence of other specified devices
CPT/HCPCS: 70450; 71045; 80053; 80305; 81001; 82803; 83605; 83690; 84484; 85007; 85025; 86328; 87040; 93005; 96374; 96375; 96376; 99284; G0378

== ENCOUNTER → 2020-05-26 14:06 | Outpatient (POV) | payer OTHER, SELFPAY ==
--- NOTE | 2020-05-26 14:38 | HMH.PMPROC ---
- Procedure Date: 05/26/20 Time: 14:38 Anesthesiologist:: Clark Alcantara MD Complications:: None Pre-procedure Diagnosis:: Degenerative disc disease of lumbar spine with lumbar radiculopathy symptoms and postlaminectomy syndrome lumbar spine with recent pump change out Post-procedure Diagnosis:: Same Indications for Procedure:: This patient is a pleasant 69-year-old white male who recently had his intrathecal pain pump changed out from a end-of-life Medtronic system to a Flowonix system. He did undergo some withdrawal type symptoms 24 hours after his surgery. The symptoms are much better currently. Pain is well under control. Pain score is a 4 out of 10. Overall he no longer has any side effects and is doing well. We will unable his PTC today so he can bolus himself when needed. Is also more active. Procedure Details:: Analysis and reprogram of intrathecal pain pump infusion Informed consent was obtained and the risk and benefits of the procedure were explained to the patient. Patient was taken the procedure room. The pump was interrogated. Intrathecal morphine infusion was continued at 2.4 mg/day. PTC device was enabled and started at 0.24 mg up to 4 times a day with a 6-hour lockout. Patient tolerated procedure well with no complications. Plan and Disposition:: We will follow-up with him in 2 weeks. We will remove his sutures at that time. If he has any problems or questions he is to call us back in the pain clinic. We will make further changes to his pain pump as needed.
[2020-05-26 14:57] VITALS: BP 133/69; PULSE 71; RESP 18; TEMP 36.4; O2SAT 100; BMI 25.0
== END ==
PROVIDERS: Visit Provider Anesthesiology
DX: M51.16 Intervertebral disc disorders with radiculopathy, lumbar region (principal); M96.1 Postlaminectomy syndrome, not elsewhere classified; Z98.890 Other specified postprocedural states
CPT/HCPCS: 62368

== ENCOUNTER → 2020-06-08 13:17 | Outpatient (POV) | payer OTHER, MEDICARE, SELFPAY ==
[2020-06-08 13:47] VITALS: BP 128/67; PULSE 74; RESP 18; TEMP 36.6; O2SAT 98; BMI 25.0
--- NOTE | 2020-06-08 14:03 | HMH.PMPROC ---
- Procedure Date: 06/08/20 Time: 14:03 Anesthesiologist:: Rose Haley APRN Complications:: None Pre-procedure Diagnosis:: Degenerative disc disease lumbar spine lumbar radiculopathy symptoms and postlaminectomy syndrome Post-procedure Diagnosis:: Same Indications for Procedure:: Patient is a pleasant 69-year-old white male who presents today for intrathecal pain pump adjustment. Patient had his intrathecal pain pump replaced and he is doing well currently on 2.4 mg of morphine a day. Patient rates pain a 5 out of 10 would like a slight increase to his pain pump. He denies side effects of medication. Physical Exam General: Alert and oriented x3, no acute distress, pleasant and cooperative, [on room air] Lungs: Resps E/U, Symmetrical chest expansion, Eyes: PERRL Musculoskeletal: Flexion and extension of lumbar spine somewhat guarded secondary to pain, deep tendon reflexes normal, strength in upper and lower extremities [5/5], [abnormal gait noted] Neurological: speech clear, rn correctional equal, no gross sensory deficits Procedure Details:: Informed consent was obtained and the risk and benefits of the procedure were explained to the patient. The patient was taken to the procedure room where noninvasive monitoring was placed including noninvasive blood pressure cuff and pulse oximeter. Patient's pump was interrogated and reprogrammed. The infusion rate was was increased to 2.9 mg of morphine a day.. The patient tolerated the procedure well. Plan and Disposition:: We will see the patient at his next intrathecal pain pump refill and reprogram patient is instructed to call our office if he has any issues prior to his next appointment. Dr. Alcantara has reviewed this note and agrees with this plan of care. This note was dictated using voice recognition software and may contain errors or omissions
== END ==
PROVIDERS: Visit Provider Clinical Nurse Specialist Family Health
DX: M51.16 Intervertebral disc disorders with radiculopathy, lumbar region (principal); M96.1 Postlaminectomy syndrome, not elsewhere classified
CPT/HCPCS: 62368; 62370

== ENCOUNTER 2020-08-14 12:57 | Day surgery (SDC) | payer OTHER, SELFPAY ==
[2020-08-14 12:59] VITALS: BP 119/43; PULSE 75; RESP 18; TEMP 36.1; BMI 25.0
[2020-08-14 13:33] VITALS: BP 119/62; PULSE 67; RESP 18
[2020-08-14 13:34] VITALS: BP 120/65; PULSE 68; RESP 18; O2SAT 98
--- NOTE | 2020-08-14 13:38 | HMH.PMPROC ---
- Procedure Date: 08/14/20 Time: 13:38 Anesthesiologist:: Rose Haley APRN Complications:: None Pre-procedure Diagnosis:: Degenerative disc disease lumbar spine lumbar radiculopathy and postlaminectomy syndrome Post-procedure Diagnosis:: Same Indications for Procedure:: Patient is a pleasant 70-year-old white male who presents today for intrathecal pain pump refill and reprogram. He rates his pain today a 3 out of 10 overall doing well he is currently on a morphine infusion 2.9 mg/day he does not need any changes. He denies any side effects to his medication. [facility] #[id number] reviewed and appropriate. Procedure Details:: Informed consent was obtained and the risk and benefits of the procedure were explained to the patient. The patient was taken to the procedure room where noninvasive monitoring was placed including noninvasive blood pressure cuff and pulse oximeter. Patient's pump was interrogated. The area over the pump was cleansed with chlorhexidine as a cleansing solution. In sterile fashion the pump was accessed with a 22-gauge needle. Approximately 7 mL's were removed of the pump solution and discarded appropriately. The pump was then refilled with 20 mL's of morphine 20 mg/mL. The needle was withdrawn and a bandage was placed over the puncture site. The infusion rate was reprogrammed to continued at 2.9 mg/day. The patient tolerated the procedure well. Plan and Disposition:: We will follow up with the patient at his next intrathecal pain pump refill and reprogram he has been instructed to call the office if he has any issues prior to his next appointment. Dr. Alcantara has reviewed this note and agrees with this plan of care. This note was dictated using voice recognition software and may contain errors or omissions
[2020-08-14 13:50] VITALS: BP 127/64; PULSE 65; RESP 18; O2SAT 96
== END 2020-08-14 13:50 | disposition home or self-care (01) ==
LOC: SC.PAINP 12:58
PROVIDERS: Visit Provider Clinical Nurse Specialist Family Health
DX: M51.16 Intervertebral disc disorders with radiculopathy, lumbar region (principal); M96.1 Postlaminectomy syndrome, not elsewhere classified; Z45.1 Encounter for adjustment and management of infusion pump; E78.5 Hyperlipidemia, unspecified; I10 Essential (primary) hypertension; E07.9 Disorder of thyroid, unspecified; F41.9 Anxiety disorder, unspecified; F32.9 Major depressive disorder, single episode, unspecified; Z79.899 Other long term (current) drug therapy
CPT/HCPCS: 95991

== ENCOUNTER 2020-10-30 13:06 | Day surgery (SDC) | payer OTHER, SELFPAY ==
[2020-10-30 13:27] VITALS: BP 140/68; PULSE 66; RESP 20; TEMP 36.6; O2SAT 98; BMI 24.4
[2020-10-30 13:44] VITALS: BP 131/61; PULSE 66; RESP 18; TEMP 37; O2SAT 98
[2020-10-30 13:55] VITALS: BP 132/65; PULSE 68; RESP 18; O2SAT 98
[2020-10-30 13:59] VITALS: BP 124/66; PULSE 65; RESP 18; O2SAT 98
--- NOTE | 2020-10-30 14:05 | HMH.PMPROC ---
- Procedure Date: 10/30/20 Time: 14:05 Anesthesiologist:: Rose Haley APRN Complications:: None Pre-procedure Diagnosis:: Degenerative disc disease lumbar spine lumbar radiculopathy and back pain Post-procedure Diagnosis:: Same Indications for Procedure:: Patient is a pleasant 70-year-old white male who presents today for intrathecal pain pump refill and reprogram overall doing well rating his pain today 4 out of 10. He is currently on morphine 2.9 mg/day. [facility] #[id number] reviewed and appropriate. Drug screens have been appropriate. He denies any side effects to his medication. Procedure Details:: Informed consent was obtained and the risk and benefits of the procedure were explained to the patient. The patient was taken to the procedure room where noninvasive monitoring was placed including noninvasive blood pressure cuff and pulse oximeter. Patient's pump was interrogated. The area over the pump was cleansed with chlorhexidine as a cleansing solution. In sterile fashion the pump was accessed with a 22-gauge needle. Approximately 8.5 mL's were removed of the pump solution and discarded appropriately. The pump was then refilled with 20 mL's of morphine 20 mg/mL. The needle was withdrawn and a bandage was placed over the puncture site. The infusion rate was reprogrammed to continued at 2.9 mg/day. The patient tolerated the procedure well. Plan and Disposition:: We will see the the patient back at his next intrathecal pain pump refill and reprogram he has been instructed to call the office if he has any issues prior to his next appointment. Dr. Alcantara has reviewed this note and agrees with this plan of care. This note was dictated using voice recognition software and may contain errors or omissions
== END 2020-10-30 14:06 | disposition home or self-care (01) ==
LOC: SC.PAINP 13:08
PROVIDERS: Visit Provider Clinical Nurse Specialist Family Health
DX: M51.16 Intervertebral disc disorders with radiculopathy, lumbar region (principal); Z45.1 Encounter for adjustment and management of infusion pump; I10 Essential (primary) hypertension; E78.5 Hyperlipidemia, unspecified; M19.90 Unspecified osteoarthritis, unspecified site; E03.9 Hypothyroidism, unspecified; Z79.899 Other long term (current) drug therapy
CPT/HCPCS: 95991

== ENCOUNTER 2021-01-29 13:59 | Day surgery (SDC) | payer OTHER, SELFPAY ==
[2021-01-29 14:05] VITALS: BP 139/65; PULSE 65; RESP 18; TEMP 36.6; O2SAT 95; BMI 25.0
[2021-01-29 14:56] VITALS: BP 122/67; PULSE 67; RESP 18; O2SAT 97
[2021-01-29 14:58] VITALS: BP 122/67; PULSE 62; RESP 18; O2SAT 99
[2021-01-29 15:08] VITALS: BP 147/65; PULSE 63; RESP 20; O2SAT 95
--- NOTE | 2021-01-29 15:14 | HMH.PMPROC ---
- Procedure Date: 01/29/21 Time: 15:14 Anesthesiologist:: Lori Angulo APRN Complications:: None Pre-procedure Diagnosis:: Degenerative disc disease lumbar spine with lumbar radiculopathy symptoms and chronic back pain Post-procedure Diagnosis:: Same Indications for Procedure:: Patient is a pleasant 70-year-old white male who presents today for intrathecal pain pump refill and reprogram. He has been treated with morphine intrathecal therapy at 2.9 mg/day. He denies any side effects to his medication. Walter and drug screen are appropriate. He is also managed with Wellbutrin 150 mg 1 tablet p.o. twice daily and gabapentin 400 mg 1 tablet p.o. every 4 hours. He denies any side effects of the medication. Patient travels from [facility] for his visits. He is requesting to be transferred to the [facility], as this is closer to his home. He rates his pain a 5 out of 10. Physical exam General: Alert and oriented x3, no acute distress, pleasant and cooperative, [on room air] Lungs: Respirations even and unlabored, symmetrical chest expansion Eyes: PERRL Musculoskeletal: Flexion and extension of lumbar spine somewhat guarded secondary to pain, deep tendon reflexes normal, strength in upper and lower extremities [5/5], [abnormal gait noted] Neurological: Speech clear, saw cleaner equal, no gross sensory deficit Procedure Details:: Informed consent was obtained and the risk and benefits of the procedure were explained to the patient. The patient was taken to the procedure room where noninvasive monitoring was placed including noninvasive blood pressure cuff and pulse oximeter. Patient's pump was interrogated. The area over the pump was cleansed with chlorhexidine as a cleansing solution. In sterile fashion the pump was accessed with a 22-gauge needle. Approximately 5 mls of the pump solution was removed and discarded appropriately. The pump was then refilled with 20 mL's of 20 mL of morphine 20 mg/mL. The needle was withdrawn and a bandage was placed over the puncture site. The infusion rate was reprogrammed at morphine 2.9 mg/day. The patient tolerated well with no complication. Plan and Disposition:: We will refill the patient's Wellbutrin 150 mg 1 tablet p.o. twice daily and gabapentin 400 mg 1 tablet p.o. every 4 hours. We will schedule the patient for his next refill visit in the [facility], as this is closer for him to drive. He has been instructed to contact clinic if he has any concerns before his next appointment. Patient has been instructed to contact the clinic with any concerns before the next appointment. Dr. Alcantara has reviewed this note and agrees with this plan of care. This note was dictated using voice recognition software and make contain errors or omissions.
== END 2021-01-29 15:09 | disposition home or self-care (01) ==
LOC: SC.PAINP 14:03
PROVIDERS: Visit Provider Clinical Nurse Specialist Family Health
DX: M51.16 Intervertebral disc disorders with radiculopathy, lumbar region (principal); G89.29 Other chronic pain; Z45.1 Encounter for adjustment and management of infusion pump
CPT/HCPCS: 95991